=== PATIENT | female | born 1940 | race Caucasian/White ===

== ENCOUNTER → 2016-09-10 | Outpatient (CLI) | payer OTHER, MEDICAID ==
[~2016-09-10] MED LIST: ALPR1TAB2 PO; BUDE10.2 INH; CELE200C PO; LISI-167 PO; TIOT18CA INH
== END | disposition home or self-care (01) ==
LOC: RAD 11:32
PROVIDERS: ATTEND Internal Medicine
DX: J18.9 Pneumonia, unspecified organism (principal); R91.8 Other nonspecific abnormal finding of lung field
CPT/HCPCS: 71020

== ENCOUNTER → 2017-01-20 | Outpatient (CLI) | payer OTHER, MEDICAID | END | disposition home or self-care (01) | LOC: RAD 11:36 | PROVIDERS: ATTEND Nurse Practitioner | DX: J44.9 Chronic obstructive pulmonary disease, unspecified (principal); I70.0 Atherosclerosis of aorta; M47.894 Other spondylosis, thoracic region | CPT/HCPCS: 71020 ==

== ENCOUNTER 2018-05-02 13:40 | Emergency (ER) | payer MEDICARE, MEDICAID ==
[~2018-05-02] VITALS: Ht 152.4 cm; Wt 97.7 kg
--- NOTE | 2018-05-02 14:01 | NUR ---
preceptor note: pt to room from [facility] by[facility]. special contact precautions in place. pt's spouse educated regarding special contact precautions.
--- NOTE | 2018-05-02 14:10 | NUR ---
FIRST CONTACT WITH PT. PT C/O DIARRHEA WITH CHILLS AND NAUSEA SINCE FRI. PT IS TAKING ABX SINCE FRIDAY DUE TO PNEUMONIA. PT DENIES ABD PAIN/V AT THIS TIME. PT AOX4. RESPS EVEN AND UNLABORED. EDMD AT BEDSIDE TO EXPLAIN POC. BP AND SPO2 MONITORS IN PLACE. CALL LIGHT WITHIN REACH.
[2018-05-02] MEDS ORDERED: BUDE10.22 INH (14:18)
[2018-05-02] MEDS ORDERED: CELE200C PO (14:19)
[2018-05-02] MEDS ORDERED: TIOT18CA INH (14:19)
[2018-05-02] MEDS ORDERED: OMEP-110 PO (14:20)
[2018-05-02] MEDS ORDERED: VITAMIN D (14:21)
[2018-05-02] MEDS ORDERED: SERT25TA3 PO (14:21)
[2018-05-02] MEDS ORDERED: POTASSIUM (14:22)
[2018-05-02] MEDS ORDERED: MAGNESIUM (14:22)
[2018-05-02] MEDS ORDERED: AMOX500T PO (14:24)
[2018-05-02 14:34] LABS: MEAN CORPUSCULAR HEMOGLOBIN 28.4 pg (27.0-34.8); MEAN CORPUSCULAR HGB CONC 32.5 g/dL (32.4-35.8); MEAN CORPUSCULAR VOLUME 87.3 fL (80-100); MEAN PLATELET VOLUME 8.5 fL (7.4-10.4); PLATELET COUNT 325 x10^3/uL (130-400); RED BLOOD COUNT 4.84 x10^6/uL (3.82-5.3); RED CELL DISTRIBUTION WIDTH 14.8 % (9.6-15.2)
[2018-05-02 14:43] LABS: ALBUMIN 3.4 g/dL (3.4-5.0); ANION GAP 6 mmol/L (5-15); CALCIUM 8.8 mg/dL (8.5-10.1); CHLORIDE 107 mmol/L (98-107); CREATININE 0.75 mg/dL (0.55-1.02)
[2018-05-02 14:57] LABS: MD YES
--- NOTE | 2018-05-02 14:58 | NUR ---
PT GIVEN WATER. PT TOLERATED WELL. PT AOX4. RESPS EVEN AND UNLABORED.
--- NOTE | 2018-05-02 15:00 | NUR ---
Note [email or web address] in ED - 05/02/18 at 1532 by MARGARITA PT AMB TO BR AND BACK TO ROOM WITH STEADY GAIT. PT AOX4. RESPS EVEN AND UNLABORED.
[2018-05-02 15:03] LABS: EOS#(MANUAL) 1.54 x10^3/uL (0.0-0.4); EOS% (MANUAL) 14 % (1-7); LYMPH#(MANUAL) 1.76 x10^3/uL (1-3.4); LYMPHS% (MANUAL) 16 % (22-44); MONOS#(MANUAL) 0.88 x10^3/uL (0.3-2.7); MONOS% (MANUAL) 8 % (2-9); SEG#(MANUAL) 6.82 x10^3/uL (1.8-6.8); SEGS% (MANUAL) 62 % (42-75)
[2018-05-02 15:05] LABS: <PLATELET ESTIMATE> ADEQUATE; <PLT MORPHOLOGY> NORMAL PLT MORPH; <RBC MORPHOLOGY> NORMAL
--- NOTE | 2018-05-02 15:20 | NUR ---
PT AMB TO BR AND BACK TO ROOM WITH STEADY GAIT. PT URINATED BUT HAS BEEN UNABLE TO PROVIDE STOOL. PT AOX4. RESPS EVEN AND UNLABORED.
[2018-05-02 16:05] VITALS: BP 149/85
--- NOTE | 2018-05-02 16:09 | NUR ---
PT GIVEN DC INSTRUCTIONS. PT AOX4. RESPS EVEN AND UNLABORED. PT'S SPO2 WAS 91% WITHOUT OXY AT DC. RESPS EVEN AND UNLABORED. PT AMB TO DC WITH STEADY GAIT. NO ACUTE DISTRESS AT DC.
== END 2018-05-02 16:26 | disposition home or self-care (01) ==
LOC: ED 16:18
DX: R19.7 Diarrhea, unspecified (principal); J15.9 Unspecified bacterial pneumonia; J44.9 Chronic obstructive pulmonary disease, unspecified
CPT/HCPCS: 36415; 71045; 80048; 82040; 85025; 99284

== ENCOUNTER 2018-05-06 15:57 | Emergency (ER) | payer MEDICARE, MEDICAID ==
[~2018-05-06] VITALS: Ht 152.4 cm; Wt 96.3 kg
[~2018-05-06 15:57] MED LIST changes: +AMOX500T PO; +BUDE10.22 INH; +MAGNESIUM; +OMEP-110 PO; +POTASSIUM; +SERT25TA3 PO; +VITAMIN D
[2018-05-06 16:59] LABS: ALANINE AMINOTRANSFERASE 38 U/L (12-78); ALBUMIN 3.6 g/dL (3.4-5.0); ANION GAP 9 mmol/L (5-15); CALCIUM 9.3 mg/dL (8.5-10.1); CHLORIDE 105 mmol/L (98-107); CREATININE 0.89 mg/dL (0.55-1.02)
[2018-05-06 17:01] LABS: ALKALINE PHOSPHATASE 143 U/L (45-117); BILIRUBIN,TOTAL 0.2 mg/dL (0.2-1.0)
[2018-05-06 17:05] LABS: MEAN CORPUSCULAR HGB CONC 33.4 g/dL (32.4-35.8); MEAN CORPUSCULAR VOLUME 86.8 fL (80-100); MEAN PLATELET VOLUME 8.5 fL (7.4-10.4); PLATELET COUNT 353 x10^3/uL (130-400); RED BLOOD COUNT 4.94 x10^6/uL (3.82-5.3); RED CELL DISTRIBUTION WIDTH 14.6 % (9.6-15.2)
--- NOTE | 2018-05-06 17:08 | NUR ---
FROM LOBBY TO ROOM AT THIS TIME
--- NOTE | 2018-05-06 17:19 | NUR ---
TASK RN: PT TO ROOM WITH RN FROM [facility]. PT WITH MIDLY INCREASED RR, 20'S. SPO2 >90% ON RA. NO COUGH NOTED. PWD. BP/SPO2/ECG MONITORING IN PLACE. NSR ON MONITOR. CALL LIGHT W/IN REACH
[2018-05-06 17:37] LABS: BASOPHILS # (AUTO) 0.04 x10^3/uL (0-0.1); BASOPHILS % (AUTO) 0 % (0-1); EOSINOPHILS # (AUTO) 2.23 x10^3/uL (0-0.4); EOSINOPHILS % (AUTO) 17 % (1-7); LYMPHOCYTES # (AUTO) 1.98 x10^3/uL (1-3.4); LYMPHOCYTES % (AUTO) 15 % (22-44); MD SCAN; MONOCYTES # (AUTO) 0.88 x10^3/uL (0.2-0.8); MONOCYTES % (AUTO) 7 % (2-9); NEUTROPHILS # (AUTO) 8.18 x10^3/uL (1.8-6.8); NEUTROPHILS % (AUTO) 61 % (42-75)
--- NOTE | 2018-05-06 17:46 | NUR ---
PT. IS A & O X 4 WITH C/O ABD. PAIN AND NAUSEA FOR APPROPXIMATELY ONE WEEK. PT. HAS THE CP MONITOR IN PLACE. VITALS MONITORED. PT. IS PINK,WARM AND DRY. LUNGS ARE CTA. MM ARE PINK AND MOIST WITH PULSES +2 THROUGHOUT. PT. IS RESTING WITH THE SIDERAILS UP X 2 AND THE CALL LIGHT IS IN PLACE.
[2018-05-06 18:05] LABS: MICROSCOPIC NOT IND
--- NOTE | 2018-05-06 18:28 | NUR ---
PT. IS EATING DINNER AND WAS GIVEN A BLANKET FOR WARMTH. CONTINUOUS MONITORING REMAINS IN PLACE.
[2018-05-06] MEDS ORDERED: AZITHROMYCIN 500 MG TABLET PO ONE (19:00)
[2018-05-06] MEDS ORDERED: AZITHROMYCIN 250 MG TABLET ONE (19:03)
[2018-05-06] MEDS ORDERED: AZITHROMYCIN 500 MG TABLET ONE (19:04)
--- NOTE | 2018-05-06 19:09 | NUR ---
REPORT RECEIVED FROM MAC KNIGHT. ASSUMED CARE OF PT. PT UP TO RESTROOM. STEADY UPON AMBUALTION TO RESTROOM AND BACK TO [facility]. JOHN VILLALOBOS WAS AT BEDSIDE FOR RECHECK/EXPLANATION OF RESULTS. PT AND PT'S VERBALIZED UNDERSTANDING OF POC.
[2018-05-06 19:29] VITALS: BP 143/83
== END 2018-05-06 19:31 | disposition home or self-care (01) ==
LOC: ED 19:18
DX: J20.9 Acute bronchitis, unspecified (principal); R53.1 Weakness; M79.18 Myalgia, other site; J44.9 Chronic obstructive pulmonary disease, unspecified; Z87.01 Personal history of pneumonia (recurrent); Z87.891 Personal history of nicotine dependence
CPT/HCPCS: 36415; 71046; 80053; 81003; 85025; 99284

== ENCOUNTER 2018-07-17 16:08 | Emergency (ER) | payer MEDICARE, MEDICAID ==
[~2018-07-17] VITALS: Ht 152.4 cm; Wt 100.1 kg
[2018-07-17 17:32] VITALS: BP 121/61
== END 2018-07-17 18:28 | disposition home or self-care (01) ==
LOC: ED 17:46
DX: M25.561 Pain in right knee (principal); M79.661 Pain in right lower leg; I10 Essential (primary) hypertension; J44.9 Chronic obstructive pulmonary disease, unspecified; Z87.891 Personal history of nicotine dependence
CPT/HCPCS: 29530; 99284

== ENCOUNTER → 2018-09-15 | Outpatient (CLI) | payer MEDICARE, MEDICAID | END | disposition home or self-care (01) | LOC: CFH 11:02 | PROVIDERS: ATTEND Internal Medicine | DX: Z13.820 Encounter for screening for osteoporosis (principal); Z87.891 Personal history of nicotine dependence | CPT/HCPCS: 77080; G0297 ==